=== PATIENT | male | born 1965 | race Caucasian/White ===

== ENCOUNTER 2016-09-03 19:04 | Emergency (ER) | payer OTHER ==
[2016-09-03 19:13] VITALS: BP 140/92
[2016-09-03] MEDS ORDERED: HYDROmorphone 1 MG/ML Syringe IM ONE (19:28)
[2016-09-03] MEDS ORDERED: Promethazine 25 MG/ML SDV IM ONE (19:28)
--- NOTE | 2016-09-03 19:35 | EDM.PDOC ---
ED HPI GENERAL MEDICAL PROBLEM - General Chief Complaint: Neck Problem Stated Complaint: PAIN IN LEFT SIDE OF NECK Time Seen by Provider: 09/03/16 19:18 Source of Information: Reports: Patient History Limitations: Reports: No Limitations - History of Present Illness INITIAL COMMENTS - FREE TEXT/NARRATIVE: c/o 1 1/2yr h/o left neck pain going down to left arm. being Tx by Dr Rivers @ pending MRI SCAN , been eval' by multiple docs and even gone to [place] but nobody can the cause of his pain. states pain comes goes lasting about 1 hour associated with sometime soreness in left throat and hard to swallow, also gets sweaty but noticed left face doesn't sweat but right face does. 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 did have head injury many years ago was admitted for concussion. presently pain going past hours and not going away. was taking oxy but that seem to make things worse and also doesn't help the pain much. 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 Respiratory History: Reports: Sleep Apnea Gastrointestinal History: Reports: Chronic Constipation Genitourinary History: Reports: Other (See Below) Other Genitourinary History: sometimes has trouble emptying bladder Musculoskeletal History: Reports: Other (See Below) Other Musculoskeletal History: diagnosed with ms 09/30 fx rt. wrist. and rotator cuff surg left. Neurological History: Reports: Concussion, MS Other Neuro History: trouble with balance, weak in both legs Psychiatric History: Reports: Depression Endocrine/Metabolic History: Reports: Other (See Below) Other Endocrine/Metabolic History: receives testosterone injections every 2 weeks, stopped getting. - Infectious Disease History Infectious Disease History: Reports: Chicken Pox - Past Surgical History Musculoskeletal Surgical History: Reports: Other (See Below) Social & Family History - Family History Oncologic: Reports: Bone, Prostate Other Oncologic Family History: dad - Tobacco Use Smoking Status *Q: Never Smoker Second Hand Smoke Exposure: No - Caffeine Use Caffeine Use: Reports: None - Alcohol Use Days Per Week of Alcohol Use: 0 - Recreational Drug Use Recreational Drug Use: No ED ROS GENERAL - Review of Systems Review Of Systems: ROS reveals no pertinent complaints other than HPI. ED EXAM, UPPER BACK/NECK PAIN - Physical Exam Exam: See Below Exam Limited By: No Limitations General Appearance: Alert, WD/WN, Mild Distress, Other (distraught) Eye Exam: Bilateral Eye: PERRL (pupils ER @ 4mm) Ears Exam: Hearing Grossly Normal Throat/Mouth Exam: Normal Voice, No Airway Compromise Head Exam: Atraumatic Neck Exam: Muscle Spasm, Other (left trapez region) Nexus Criteria: No: Posterior, Midline Cervical Tenderness, Evidence of Intoxication, Altered Level of Consciousness, Focal Neurological Deficit, Painful Distraction Injuries Cardiovascular/Respiratory: Regular Rate, Rhythm, No Respiratory Distress GI/Abdominal: Soft, Non-Tender Extremities: Normal Range of Motion Neurologic: No Motor/Sensory Deficits, Alert, Oriented x 3 Psychiatric: Other (angry) Skin Exam: Normal Color, Warm/Dry Lymphatic: No Adenopathy Course - Vital Signs Last Recorded V/S: Last Vital Signs Temp 35.9 C 09/03/16 19:12 Pulse 99 09/03/16 19:12 Resp 20 09/03/16 19:12 BP 140/92 H 09/03/16 19:12 Pulse Ox 99 09/03/16 19:12 - Orders/Labs/Meds Orders: Active Orders 24 hr Category Date Time Status fentaNYL [Duragesic] Med 09/03/16 21:30 Ordered 50 mcg TRDERM Q72H Medication Orders Fentanyl (Duragesic) 50 mcg TRDERM Q72H [facility] Meds: Medications Generic Name Dose Route Start Last Admin Trade Name Freq PRN Reason Stop Dose Admin Fentanyl 50 mcg 09/03/16 21:30 Duragesic TRDERM Q72H JA Discontinued Medications Generic Name Dose Route Start Last Admin Trade Name Freq PRN Reason Stop Dose Admin Fentanyl 50 mcg 09/03/16 20:13 09/03/16 20:25 Sublimaze IVPUSH 09/03/16 20:14 50 mcg ONETIME ONE Administration Hydromorphone HCl 1 mg 09/03/16 19:28 09/03/16 19:38 Dilaudid IM 09/03/16 19:29 1 mg ONETIME ONE Administration Promethazine HCl 25 mg 09/03/16 19:28 09/03/16 19:38 Phenergan IM 09/03/16 19:29 25 mg ONETIME ONE Administration - Re-Assessments/Exams Free Text/Narrative Re-Assessment/Exam: 09/03/16 21:26 s/p fentanyl = much better thinks can go home. discussed with Pt & spouse re; interaction between cymbalta & fentanyl but will substitute with ativan instead. Departure - Departure Time of Disposition: 21:28 Disposition: Home, Self-Care 01 Condition: Good Clinical Impression: Intractable neuropathic pain of upper extremity - Discharge Information Instructions: Neuropathic Pain Forms: ED Department Discharge Additional Instructions: 1) rest and avoid excess use of left arm 2) follow up with family doctor or return if there is any change or concern rx given; fentanyl 50 microGm patch x 1 ativan 1mg bid prn x 6 - My Orders Last 24 Hours: My Active Orders 09/03/16 21:30 fentaNYL [Duragesic] 50 mcg TRDERM Q72H - Assessment/Plan Last 24 Hours: My Active Orders 09/03/16 21:30 fentaNYL [Duragesic] 50 mcg TRDERM Q72H
[2016-09-03] MEDS ORDERED: fentaNYL 100 MCG/2 ML SDV IVPUSH ONE (20:13)
[2016-09-03] MEDS ORDERED: fentaNYL 50 MCG/HR Transdermal Patch TRDERM SCH (21:30)
[2016-09-03] MEDS ORDERED: LORazepam 1 MG Tab ONE (21:37)
== END 2016-09-03 22:02 | disposition home or self-care (01) ==
LOC: DL.ED 19:04
DX: M79.2 Neuralgia and neuritis, unspecified (principal); H54.7 Unspecified visual loss; E78.00 Pure hypercholesterolemia, unspecified; I10 Essential (primary) hypertension; F32.9 Major depressive disorder, single episode, unspecified
CPT/HCPCS: 96372; 96374; 99283; A9270; J1170; J2550; J3010

== ENCOUNTER 2016-09-03 23:47 | Emergency (ER) | payer OTHER ==
[2016-09-03 23:59] VITALS: BP 164/91
[2016-09-04] MEDS ORDERED: Ketorolac 30 MG/ML SDV IVPUSH ONE ×2 (00:09→05:24)
--- NOTE | 2016-09-04 00:11 | EDM.PDOC ---
<Clarence Jeter - Last Filed: 09/04/16 05:55> ED HPI GENERAL MEDICAL PROBLEM - General Chief Complaint: General Stated Complaint: LEFT NECK [phone] Time Seen by Provider: 09/04/16 00:10 Source of Information: Reports: Patient History Limitations: Reports: No Limitations - History of Present Illness INITIAL COMMENTS - FREE TEXT/NARRATIVE: return Left Neck Pain Score (Numeric/FACES): 10 - Related Data Allergies Allergy/AdvReac Type Severity Reaction Status Date / Time No Known Allergies Allergy Verified 09/03/16 23:59 Home Meds: Home Meds DULoxetine [Cymbalta] 1 tab PO BID 09/03/16 [History] Topiramate 1 tab PO BEDTIME 09/03/16 [History] Past Medical History HEENT History: Reports: Impaired Vision Cardiovascular History: Reports: High Cholesterol, Hypertension Other Cardiovascular History: See triage note re: Lipitor was discontinued. Respiratory History: Reports: Sleep Apnea Gastrointestinal History: Reports: Chronic Constipation Genitourinary History: Reports: Other (See Below) Other Genitourinary History: sometimes has trouble emptying bladder Musculoskeletal History: Reports: Other (See Below) Other Musculoskeletal History: diagnosed with ms 09/30 fx rt. wrist. and rotator cuff surg left. Neurological History: Reports: Concussion, MS Other Neuro History: trouble with balance, weak in both legs Psychiatric History: Reports: Depression Endocrine/Metabolic History: Reports: Other (See Below) Other Endocrine/Metabolic History: receives testosterone injections every 2 weeks, stopped getting. - Infectious Disease History Infectious Disease History: Reports: Chicken Pox - Past Surgical History Musculoskeletal Surgical History: Reports: Other (See Below) Social & Family History - Family History Oncologic: Reports: Bone, Prostate Other Oncologic Family History: dad - Tobacco Use Smoking Status *Q: Never Smoker Second Hand Smoke Exposure: No - Caffeine Use Caffeine Use: Reports: Soda - Alcohol Use Days Per Week of Alcohol Use: 0 - Recreational Drug Use Recreational Drug Use: No ED ROS GENERAL - Review of Systems Review Of Systems: ROS reveals no pertinent complaints other than HPI. ED EXAM, GENERAL - Physical Exam Exam: See Below Exam Limited By: No Limitations General Appearance: Alert, WD/WN, Mild Distress, Other (pain) Ears: Hearing Grossly Normal Throat/Mouth: Normal Voice, No Airway Compromise Head: Atraumatic Neck: Full Range of Motion, Other (tenderness from left mastoid region of trapezius to left hand) Respiratory/Chest: No Respiratory Distress Cardiovascular: Regular Rate, Rhythm GI/Abdominal: Soft, Non-Tender Neurological: Alert, Oriented, Normal Cognition, Normal Gait, No Motor/Sensory Deficits Psychiatric: Anxious Skin Exam: Warm, Dry, Other (patch on left shoulder intact) Lymphatic: No Adenopathy Course - Vital Signs Last Recorded V/S: Last Vital Signs Temp 97.7 F 09/03/16 23:52 Pulse 97 09/03/16 23:52 Resp 18 09/03/16 23:52 BP 164/91 H 09/03/16 23:52 Pulse Ox 98 09/03/16 23:52 - Orders/Labs/Meds Meds: Medications Discontinued Medications Generic Name Dose Route Start Last Admin Trade Name Madelyn PRN Reason Stop Dose Admin Ketorolac Tromethamine 30 mg 09/04/16 00:09 09/04/16 00:21 Toradol IVPUSH 09/04/16 00:10 30 mg ONETIME ONE Administration Ketorolac Tromethamine 30 mg 09/04/16 05:24 09/04/16 05:37 Toradol IVPUSH 09/04/16 05:25 30 mg ONETIME ONE Administration Lorazepam 2 mg 09/04/16 01:13 09/04/16 01:19 Ativan IVPUSH 09/04/16 01:14 2 mg ONETIME ONE Administration Phenytoin Sodium 1,000 mg 09/04/16 05:59 09/04/16 06:13 Phenytoin IVPUSH 09/04/16 06:00 1,000 mg ONETIME ONE Administration - Re-Assessments/Exams Free Text/Narrative Re-Assessment/Exam: 09/04/16 06:[address] Guillen Neuro on-call @ who rec' IV dilantin for Pt's pain that is not responding well to opiods. Pt instructed to call Dr Rivers @ 8am when he gets home. Departure - Departure Disposition: Home, Self-Care 01 Condition: Good Clinical Impression: Neuropathic pain - Discharge Information Instructions: Neuropathic Pain Forms: ED Department Discharge Additional Instructions: 1) call Dr Rivers today for uncontrollable pain. Inform Dr Rivers you have a 50microgram FENTANYL PATCH placed and it is not helping. Inform Dr Rivers you were here overnight and was given IV TORADOL AND IV ATIVAN and slept for about 5 hours and upon waking your pain returned. then you received IV TORADOL AND IV DILANTIN per Dr Guillen' recommendation and to call Dr Rivers this morning. <Dillon Dewey - Last Filed: 09/04/16 07:15> Departure - Departure Time of Disposition: 07:14 Condition: Good
[2016-09-04] MEDS ORDERED: LORazepam 2 MG/ML Syringe IVPUSH ONE (01:13)
[2016-09-04] MEDS ORDERED: Phenytoin 250 MG/5 ML SDV IVPUSH ONE (05:59)
== END 2016-09-04 07:20 | disposition home or self-care (01) ==
LOC: DL.ED 23:47
DX: M79.2 Neuralgia and neuritis, unspecified (principal); H54.7 Unspecified visual loss; E78.00 Pure hypercholesterolemia, unspecified; I10 Essential (primary) hypertension; F32.9 Major depressive disorder, single episode, unspecified; G35 Multiple sclerosis
CPT/HCPCS: 96365; 96375; 96376; 99283; J1165; J1885; J2060; 96372; 96374; A9270-GY; J1170; J2550; J3010

== ENCOUNTER 2016-09-05 03:34 | Emergency (ER) | payer OTHER ==
[2016-09-05 03:49] VITALS: BP 138/88
[2016-09-05] MEDS ORDERED: LORazepam 1 MG Tab PO ONE (04:48)
[2016-09-05] MEDS ORDERED: LORazepam 1 MG Tab ONE (04:48)
--- NOTE | 2016-09-05 04:54 | EDM.PDOC ---
ED HPI GENERAL MEDICAL PROBLEM - General Chief Complaint: Neck Problem Stated Complaint: LEFT SIDE OF NECK PAIN Time Seen by Provider: 09/05/16 03:50 Source of Information: Reports: Patient History Limitations: Reports: No Limitations - History of Present Illness INITIAL COMMENTS - FREE TEXT/NARRATIVE: c/o pain to left arm starting at neck and radiating down to fingers, intermittent. Was seen in ED last caridad for same. Seemed to do better yesterday then woke during night with pain so came to ED. Has been on multiple medications in past to alleviate pain without success. Diagnosed with MS in 2013. Primary symptoms at onset loss of balance. Sx seems to have plateaued. Has been seen by multiple specialists for left upper extremity pain and no determined cause. Sheduled for MRI on Sunday of neck and soft tissue. Patient states he just wants someone to go in surgically and fix whatever is wrong. Onset: Other Duration: Chronic, Waxing/Waning Location: Reports: Upper Extremity, Left Left Neck Pain Score (Numeric/FACES): 10 - Related Data Allergies Allergy/AdvReac Type Severity Reaction Status Date / Time No Known Allergies Allergy Verified 09/05/16 03:48 Home Meds: Home Meds DULoxetine [Cymbalta] 1 tab PO BID 09/03/16 [History] Topiramate 1 tab PO BEDTIME 09/03/16 [History] Past Medical History HEENT History: Reports: Impaired Vision Cardiovascular History: Reports: High Cholesterol, Hypertension Other Cardiovascular History: See triage note re: Lipitor was discontinued. Respiratory History: Reports: Sleep Apnea Gastrointestinal History: Reports: Chronic Constipation Genitourinary History: Reports: Other (See Below) Other Genitourinary History: sometimes has trouble emptying bladder Musculoskeletal History: Reports: Other (See Below) Other Musculoskeletal History: diagnosed with ms 09/30 fx rt. wrist. and rotator cuff surg left. Neurological History: Reports: Concussion, MS Other Neuro History: trouble with balance, weak in both legs Psychiatric History: Reports: Depression Endocrine/Metabolic History: Reports: Other (See Below) Other Endocrine/Metabolic History: receives testosterone injections every 2 weeks, stopped getting. - Infectious Disease History Infectious Disease History: Reports: Chicken Pox - Past Surgical History Musculoskeletal Surgical History: Reports: Other (See Below) Social & Family History - Family History Oncologic: Reports: Bone, Prostate Other Oncologic Family History: dad - Tobacco Use Smoking Status *Q: Never Smoker Second Hand Smoke Exposure: No - Caffeine Use Caffeine Use: Reports: Soda - Alcohol Use Days Per Week of Alcohol Use: 0 - Recreational Drug Use Recreational Drug Use: No ED ROS GENERAL - Review of Systems Review Of Systems: See Below Constitutional: Reports: No Symptoms HEENT: Reports: No Symptoms. Denies: Vision Change Respiratory: Reports: No Symptoms Cardiovascular: Reports: No Symptoms Endocrine: Reports: No Symptoms GI/Abdominal: Reports: No Symptoms Musculoskeletal: Reports: Arm Pain (intermittent pain radiating from neck to fingers occurs approximately every hours last up to 45 minutes , notes pain to be worse after exertional type activities. only thing makes pain beter is to walk. pain worse sitting and lying. ) Skin: Reports: Diaphoresis, Other (2-3 weeks if sweats, more profuse on right than left.) Neurological: Denies: Numbness Psychiatric: Reports: Anxiety ED EXAM, UPPER BACK/NECK PAIN - Physical Exam Exam: See Below Exam Limited By: No Limitations General Appearance: Alert, No Apparent Distress (rates current pain 2/10) Eye Exam: Bilateral Eye: EOMI, PERRL Ears Exam: Normal External Exam Nose Exam: Normal Inspection Throat/Mouth Exam: Normal Inspection Head Exam: Atraumatic, Normocephalic Cardiovascular/Respiratory: Regular Rate, Rhythm, Normal Peripheral Pulses GI/Abdominal: Normal Bowel Sounds, Soft, Non-Tender Neurologic: No Motor/Sensory Deficits, Oriented x 3, Depressed Affect. No: Aphasia, Motor Weakness, Sensory Deficit, Disoriented x 3 Psychiatric: Flat Affect (poor eye contact, negative focus, ) Skin Exam: Normal Color, Warm/Dry Course - Vital Signs Last Recorded V/S: Last Vital Signs Temp 96.3 F 09/05/16 03:40 Pulse 86 09/05/16 03:40 Resp 18 09/05/16 03:40 BP 138/88 09/05/16 03:40 Pulse Ox 99 09/05/16 03:40 - Orders/Labs/Meds Meds: Medications Discontinued Medications Generic Name Dose Route Start Last Admin Trade Name Freq PRN Reason Stop Dose Admin Lorazepam Confirm 09/05/16 04:48 Ativan Administered 09/05/16 04:49 Dose 1 mg .ROUTE .STK-MED ONE Departure - Departure Time of Disposition: 04:49 Disposition: Home, Self-Care 01 Condition: Fair Clinical Impression: Left upper arm pain, Multiple sclerosis - Discharge Information Instructions: Cervical Radiculopathy, [id number], Chronic Pain Forms: ED Department Discharge Additional Instructions: Follow up with MRI on Sunday as scheduled Ativan 1 mg every 6 hours as needed for anxiety /pain ight activity as tolerated.
== END 2016-09-05 04:57 | disposition home or self-care (01) ==
LOC: DL.ED 03:34
DX: M79.622 Pain in left upper arm (principal); G35 Multiple sclerosis; H54.7 Unspecified visual loss; I10 Essential (primary) hypertension; F32.9 Major depressive disorder, single episode, unspecified
CPT/HCPCS: 99283; A9270

== ENCOUNTER 2016-09-06 00:53 | Emergency (ER) | payer OTHER ==
[2016-09-06 01:02] VITALS: BP 153/93
[2016-09-06] MEDS ORDERED: Ketorolac 30 MG/ML SDV IM ONE (02:06)
--- NOTE | 2016-09-06 02:24 | EDM.PDOC ---
ED HPI GENERAL MEDICAL PROBLEM - General Chief Complaint: Neck Problem Stated Complaint: NECK PAIN Time Seen by Provider: 09/06/16 01:05 Source of Information: Reports: Patient History Limitations: Reports: No Limitations - History of Present Illness INITIAL COMMENTS - FREE TEXT/NARRATIVE: c/o recurrence of left arm and shoulder pain after going to bed, tried walking and pain continued. Pain worse when lying flat and sitting, more relief when upright. Has been seen daily for same 3 times in past 2 days. Tonight noting that Toradol worked best for him after fentanyl. Currently has fentanyl patch. MRI scheduled for am in [place]. Follow up appointment with Dr. Salguero on Sunday. Was prescribed medication By Dr. Klein on Sunday but not available locally until Sunday. Has tried muscle relaxants in past that have not worked. Unable to tolerate Neurontin due to " bad thoughts" Currently experiences periods of similar thoughts of not wanting to go on if pain not controlled and unknown cause. Denies immediate plans of harm to self. Voices only able to keep going ans long as cause of pain being investigated. Continues to desire investigative surgery to determine cause of pain. Has seen counselor in past but does not thinking it was beneficial as counselor did not seem to have experience in issues with pain. Duration: Chronic, Intermittent Location: Reports: Upper Extremity, Left Quality: Reports: Sharp, Other (tingling, spasm) Severity: Severe Left Neck Pain Score (Numeric/FACES): 10 - Related Data Allergies Allergy/AdvReac Type Severity Reaction Status Date / Time No Known Allergies Allergy Verified 09/06/16 01:02 Home Meds: Home Meds Dimethyl Fumarate [Tecfidera] 240 mg PO BID 09/06/16 [History] LORazepam [Ativan] 1 mg PO Q6H 09/06/16 [History] fentaNYL [Fentanyl] 1 each TD ASDIRECTED 09/06/16 [History] Past Medical History HEENT History: Reports: Impaired Vision Cardiovascular History: Reports: High Cholesterol, Hypertension Other Cardiovascular History: See triage note re: Lipitor was discontinued. Respiratory History: Reports: Sleep Apnea Gastrointestinal History: Reports: Chronic Constipation Genitourinary History: Reports: Other (See Below) Other Genitourinary History: sometimes has trouble emptying bladder Musculoskeletal History: Reports: Other (See Below) Other Musculoskeletal History: diagnosed with ms 7/15 fx rt. wrist. and rotator cuff surg left. Neurological History: Reports: Concussion, MS Other Neuro History: trouble with balance, weak in both legs Psychiatric History: Reports: Depression Endocrine/Metabolic History: Reports: Other (See Below) Other Endocrine/Metabolic History: receives testosterone injections every 2 weeks, stopped getting. - Infectious Disease History Infectious Disease History: Reports: Chicken Pox - Past Surgical History Musculoskeletal Surgical History: Reports: Other (See Below) Social & Family History - Family History Oncologic: Reports: Bone, Prostate Other Oncologic Family History: dad - Tobacco Use Smoking Status *Q: Never Smoker Second Hand Smoke Exposure: No - Caffeine Use Caffeine Use: Reports: Soda - Alcohol Use Days Per Week of Alcohol Use: 0 - Recreational Drug Use Recreational Drug Use: No ED ROS GENERAL - Review of Systems Review Of Systems: ROS reveals no pertinent complaints other than HPI. ED EXAM, UPPER BACK/NECK PAIN - Physical Exam Exam: See Below Exam Limited By: No Limitations General Appearance: Alert, Anxious, Mild Distress, Obese Ears Exam: Normal External Exam Nose Exam: Normal Inspection Throat/Mouth Exam: Normal Inspection Head Exam: Atraumatic, Normocephalic Neck Exam: Full Range of Motion, Normal Alignment, Muscle Spasm (left), Tenderness (left lateral with palpation, ). No: Spinous Processes Tender Nexus Criteria: No: Posterior, Midline Cervical Tenderness, Evidence of Intoxication, Altered Level of Consciousness, Focal Neurological Deficit, Painful Distraction Injuries Cardiovascular/Respiratory: Regular Rate, Rhythm Extremities: Normal Range of Motion, Arm Pain (left) Neurologic: No Motor/Sensory Deficits, Alert. No: Motor Weakness Psychiatric: Anxious, Depressed Mood Skin Exam: Normal Color, Warm/Dry. No: Ecchymosis, Mottled, Pallor Lymphatic: No Adenopathy Course - Vital Signs Last Recorded V/S: Last Vital Signs Temp 97.9 F 09/06/16 00:57 Pulse 97 09/06/16 00:57 Resp 18 09/06/16 00:57 BP 153/93 H 09/06/16 00:57 Pulse Ox 95 09/06/16 00:57 - Orders/Labs/Meds Meds: Medications Discontinued Medications Generic Name Dose Route Start Last Admin Trade Name Freq PRN Reason Stop Dose Admin Ketorolac Tromethamine 60 mg 09/06/16 02:06 09/06/16 02:10 Toradol IM 09/06/16 02:07 60 mg ONETIME ONE Administration Departure - Departure Time of Disposition: 02:25 Disposition: Home, Self-Care 01 Condition: Good Clinical Impression: Pain of left arm, Neck pain on left side - Discharge Information Instructions: Muscle Cramps and Spasms, [id number] Forms: ED Department Discharge Additional Instructions: follow up with primary care MRI in am
== END 2016-09-06 02:27 | disposition home or self-care (01) ==
LOC: DL.ED 00:53
DX: M54.2 Cervicalgia (principal); M79.602 Pain in left arm; M62.838 Other muscle spasm; I10 Essential (primary) hypertension; E78.00 Pure hypercholesterolemia, unspecified; G47.30 Sleep apnea, unspecified; F32.9 Major depressive disorder, single episode, unspecified; G35 Multiple sclerosis; Z79.899 Other long term (current) drug therapy
CPT/HCPCS: 96372; 99283; J1885

== ENCOUNTER 2016-09-06 13:36 | Emergency (ER) | payer OTHER ==
[2016-09-06 14:02] VITALS: BP 146/103
[2016-09-06] MEDS ORDERED: chlorproMAZINE 25 MG Tab PO ONE (14:07)
--- NOTE | 2016-09-06 14:34 | EDM.PDOC ---
ED HPI GENERAL MEDICAL PROBLEM - General Chief Complaint: Neck Problem Time Seen by Provider: 09/06/16 13:50 Source of Information: Reports: Patient History Limitations: Reports: No Limitations - History of Present Illness INITIAL COMMENTS - FREE TEXT/NARRATIVE: This 51 yo male patient reports to the ED with left sided neck pain radiating to his left arm. The patient has been seen in the ED 4 times over the past 3 days for the same symptoms, but continues to be in pain. The patient reports he is scheduled to have an MRI tomorrow afternoon at 1300 in [facility]. The patient reports the last visit to the ED did not resolve his pain, in fact, the patient reports the medication (Toradol) actually made his pain constant. The patient reports that he is supposed to get another medication from [facility] after 4 pm today, but the patient would like something to get him from now to 4 pm. The patient reports some frustration with constant pain in his shoulder and neck. The patient reports he has been seen at the [facility] for his MS, by neurology (Dr. Klein in [place]) and by pain management in [place], but continues to have pain. Onset: Gradual Duration: Day(s):, Constant, Getting Worse Location: Reports: Neck (left side of neck ), Upper Extremity, Left Quality: Reports: Ache, Dull Severity: Moderate Improves with: Reports: None Worsens with: Reports: None Associated Symptoms: Reports: No Other Symptoms Left Neck Pain Score (Numeric/FACES): 10 - Related Data Allergies Allergy/AdvReac Type Severity Reaction Status Date / Time No Known Allergies Allergy Verified 09/06/16 01:02 Home Meds: Home Meds Dimethyl Fumarate [Tecfidera] 240 mg PO BID 09/06/16 [History] LORazepam [Ativan] 1 mg PO Q6H 09/06/16 [History] fentaNYL [Fentanyl] 1 each TD ASDIRECTED 09/06/16 [History] Past Medical History HEENT History: Reports: Impaired Vision Cardiovascular History: Reports: High Cholesterol, Hypertension Other Cardiovascular History: See triage note re: Lipitor was discontinued. Respiratory History: Reports: Sleep Apnea Gastrointestinal History: Reports: Chronic Constipation Genitourinary History: Reports: Other (See Below) Other Genitourinary History: sometimes has trouble emptying bladder Musculoskeletal History: Reports: Other (See Below) Other Musculoskeletal History: diagnosed with ms 09/30 fx rt. wrist. and rotator cuff surg left. Neurological History: Reports: Concussion, MS Other Neuro History: trouble with balance, weak in both legs Psychiatric History: Reports: Depression Endocrine/Metabolic History: Reports: Other (See Below) Other Endocrine/Metabolic History: receives testosterone injections every 2 weeks, stopped getting. - Infectious Disease History Infectious Disease History: Reports: Chicken Pox - Past Surgical History Musculoskeletal Surgical History: Reports: Other (See Below) Social & Family History - Family History Oncologic: Reports: Bone, Prostate Other Oncologic Family History: dad - Tobacco Use Smoking Status *Q: Never Smoker Second Hand Smoke Exposure: No - Caffeine Use Caffeine Use: Reports: Soda - Alcohol Use Days Per Week of Alcohol Use: 0 - Recreational Drug Use Recreational Drug Use: No ED ROS GENERAL - Review of Systems Review Of Systems: ROS reveals no pertinent complaints other than HPI. ED EXAM, UPPER BACK/NECK PAIN - Physical Exam Exam: See Below Exam Limited By: No Limitations General Appearance: Alert, WD/WN, No Apparent Distress Eye Exam: Bilateral Eye: EOMI, Normal Inspection, PERRL Ears Exam: Normal External Exam, Normal Canal, Hearing Grossly Normal, Normal TMs Nose Exam: Normal Inspection, Normal Mucousa, No Blood Throat/Mouth Exam: Normal Inspection, Normal Lips, Normal Teeth, Normal Gums, Normal Oropharynx, Normal Voice, No Airway Compromise Head Exam: Atraumatic, Normocephalic Neck Exam: Limited Range of Motion, Painful Range of Motion (left neck) Nexus Criteria: Posterior, Midline Cervical Tenderness Cardiovascular/Respiratory: Regular Rate, Rhythm, No M/R/G, Normal Peripheral Pulses, No JVD, Normal Breath Sounds, No Respiratory Distress GI/Abdominal: Normal Bowel Sounds, Soft, Non-Tender, No Organomegaly, No Distention, No Abnormal Bruit, No Mass (Male) Exam: Deferred Rectal (Males) Exam: Deferred Back Exam: Normal Inspection, Full Range of Motion, NT Extremities: Normal Inspection, Normal Range of Motion, Non-Tender, No Pedal Edema, Normal Capillary Refill Neurologic: vest tailor II-XII nml As Tested, No Motor/Sensory Deficits, Alert, Normal Mood/Affect, Oriented x 3 Psychiatric: Normal Affect, Normal Mood Skin Exam: Normal Color, Warm/Dry Lymphatic: No Adenopathy Course - Vital Signs Last Recorded V/S: Last Vital Signs Temp 36.6 C 06/21/17 13:38 Pulse 101 H 09/06/16 13:38 Resp 18 09/06/16 13:38 BP 146/103 H 09/06/16 13:38 Pulse Ox 96 09/06/16 13:38 - Orders/Labs/Meds Meds: Medications Discontinued Medications Generic Name Dose Route Start Last Admin Trade Name Madelyn PRN Reason Stop Dose Admin Chlorpromazine HCl 25 mg 09/06/16 14:07 09/06/16 14:34 Thorazine PO 09/06/16 14:08 Not Given ONETIME ONE Chlorpromazine HCl 25 mg 09/06/16 14:30 09/06/16 14:30 Chlorpromazine PO 09/06/16 14:31 25 mg ONETIME ONE Administration - Re-Assessments/Exams Free Text/Narrative Re-Assessment/Exam: 09/06/16 14:27 A call was placed to Dr. Klein (Neurology with [facility]). Dr. Klein is aware of the patient's recent visits to the ED. Dr. Klein would like the patient to get an oral dose of Thorazine (25 mg) here in the ED. The patient should poultry picker his prescription from [facility] after 4:00 this afternoon. The patient should still get his MRI tomorrow at [facility] in [place] with a follow-up appointment with Dr. Klein on Sunday. The patient should take the Thorazine as directed (25 mg three times per day). Departure - Departure Time of Disposition: 14:30 Disposition: Home, Self-Care 01 Condition: Fair Clinical Impression: Neck pain on left side - Discharge Information Forms: ED Department Discharge Care Plan Goals: The patient was advised of the examination results and the consultation results with Dr. Klein. The patient was given an oral dose of Thorazine (25 mg) while in the ED. The patient should poultry picker his prescription for Thorazine (25 mg) to take 1 by mouth 3 times per day at [facility] after 4:00 this afternoon. The patient should get the MRI tomorrow in [place] as scheduled. The patient has a follow-up scheduled with Dr. Klein on Sunday. If the patient has any additional symptoms or concerns, the patient should contact Dr. Klein, his primary care facility or return to the emergency department.
== END 2016-09-06 14:36 | disposition home or self-care (01) ==
LOC: DL.ED 13:36
DX: M54.2 Cervicalgia (principal); I10 Essential (primary) hypertension; E78.00 Pure hypercholesterolemia, unspecified; G47.30 Sleep apnea, unspecified; F32.9 Major depressive disorder, single episode, unspecified
CPT/HCPCS: 99283; Q0161; 96372; J1885

== ENCOUNTER 2016-09-15 09:35 | Emergency (ER) | payer OTHER ==
--- NOTE | 2016-09-15 10:44 | EDM.PDOC ---
ED HPI GENERAL MEDICAL PROBLEM - General Chief Complaint: Upper Extremity Injury/Pain Stated Complaint: pain left arm, possible drug reation Time Seen by Provider: 09/15/16 10:37 Source of Information: Reports: Patient, Family History Limitations: Reports: No Limitations - History of Present Illness INITIAL COMMENTS - FREE TEXT/NARRATIVE: 51 yo male who presents with pain to left arm that is getting worse. Has an 1.5 year hx of left arm pain after a shoulder surgery with evaluation by multiple specialist. Is being followed by Dr. Klein Neuro in and recently had an MRI of his soft tissue neck which was negative for any enlarged lymph nodes that may be pressing against a nerve. Has a hx of MS and had MRI of his neck that reveals no injuries per patient and . Was seen in this ER multiple times this month with pain that was not relieved by any medication. States narcotics cause pain to increase, was placed on thorazine and gabapentin. States that gabapentin causes increased in "weird thoughts" so he quite it. Was placed on a fentanyl patch last week and when site was switched to left shoulder he began having excruciating pain and removed it after 24 hours. Has not replaced the patch since. Denies decrease in strength,but c/o numbness and tingling starting from his left lateral neck under his ear down to his fingers. No n/v/d. Onset: Gradual, Unknown/Unsure Duration: Getting Worse Location: Reports: Upper Extremity, Left Quality: Reports: Ache, Pressure, Throbbing Severity: Severe Improves with: Reports: None Worsens with: Reports: None Associated Symptoms: Reports: No Other Symptoms Left Arm Pain Score (Numeric/FACES): 10 - Related Data Allergies Allergy/AdvReac Type Severity Reaction Status Date / Time No Known Allergies Allergy Verified 09/06/16 01:02 Home Meds: Home Meds Dimethyl Fumarate [Tecfidera] 240 mg PO BID 09/06/16 [History] LORazepam [Ativan] 1 mg PO Q6H 09/06/16 [History] fentaNYL [Fentanyl] 1 each TD ASDIRECTED 09/06/16 [History] Past Medical History HEENT History: Reports: Impaired Vision Cardiovascular History: Reports: High Cholesterol, Hypertension Other Cardiovascular History: See triage note re: Lipitor was discontinued. Respiratory History: Reports: Sleep Apnea Gastrointestinal History: Reports: Chronic Constipation Genitourinary History: Reports: Other (See Below) Other Genitourinary History: sometimes has trouble emptying bladder Musculoskeletal History: Reports: Other (See Below) Other Musculoskeletal History: diagnosed with ms 09/30 fx rt. wrist. and rotator cuff surg left. Neurological History: Reports: Concussion, MS Other Neuro History: trouble with balance, weak in both legs Psychiatric History: Reports: Depression Endocrine/Metabolic History: Reports: Other (See Below) Other Endocrine/Metabolic History: receives testosterone injections every 2 weeks, stopped getting. - Infectious Disease History Infectious Disease History: Reports: Chicken Pox - Past Surgical History Male Surgical History: Reports: Other (See Below) Other Male Surgeries/Procedures: removal of testicle Musculoskeletal Surgical History: Reports: Other (See Below) Other Musculoskeletal Surgeries/Procedures:: ACL repair Social & Family History - Family History Oncologic: Reports: Bone, Prostate Other Oncologic Family History: dad - Tobacco Use Smoking Status *Q: Never Smoker Second Hand Smoke Exposure: No - Caffeine Use Caffeine Use: Reports: Coffee, Soda - Alcohol Use Days Per Week of Alcohol Use: 0 - Recreational Drug Use Recreational Drug Use: No Review of Systems - Review of Systems Review Of Systems: ROS reveals no pertinent complaints other than HPI. ED EXAM, GENERAL - Physical Exam Exam: See Below Exam Limited By: No Limitations General Appearance: Alert, WD/WN, No Apparent Distress Neck: Normal Inspection, Supple, Full Range of Motion, Tender Lateral (with palpation of neck just above clavicle) Respiratory/Chest: No Respiratory Distress, Lungs Clear, Normal Breath Sounds, No Accessory Muscle Use, Chest Non-Tender Cardiovascular: Normal Peripheral Pulses, Regular Rate, Rhythm, No Edema, No Gallop, No JVD, No Murmur, No Rub Peripheral Pulses: 4+: Carotid (L), Carotid (R), Brachial (L), Brachial (R), Radial (L), Radial (R) Back Exam: Normal Inspection Extremities: Normal Inspection, Normal Range of Motion, Non-Tender, Normal Capillary Refill, No Pedal Edema Neurological: Alert, Oriented, CN II-XII Intact, Normal Cognition, Normal Gait, No Motor/Sensory Deficits Psychiatric: Normal Affect, Normal Mood Skin Exam: Warm, Dry, Intact, Normal Color, No Rash Lymphatic: No Adenopathy Course - Vital Signs Last Recorded V/S: Last Vital Signs Temp 98.0 F 09/15/16 13:46 Pulse 84 09/15/16 13:46 Resp 18 09/15/16 13:46 BP 158/84 H 09/15/16 13:46 Pulse Ox 98 09/15/16 13:46 - Orders/Labs/Meds Meds: Medications Discontinued Medications Generic Name Dose Route Start Last Admin Trade Name Madelyn PRN Reason Stop Dose Admin Iopamidol 75 ml 09/15/16 11:54 09/15/16 12:08 Isovue-300 (61%) IVPUSH 09/15/16 11:55 75 ml ONETIME ONE Administration Lidocaine 700 mg 09/15/16 10:45 09/15/16 10:57 Lidoderm 5% TOP 09/15/16 10:46 700 mg ONETIME ONE Administration Lidocaine 700 mg 09/15/16 13:24 09/15/16 14:14 Lidoderm 5% TOP 09/15/16 13:25 700 mg ONETIME ONE Administration Lorazepam 2 mg 09/15/16 13:37 09/15/16 14:12 Ativan IM 09/15/16 13:38 2 mg ONETIME ONE Administration Pregabalin 50 mg 09/15/16 10:46 09/15/16 10:56 Lyrica PO 09/15/16 10:47 50 mg ONETIME ONE Administration - Re-Assessments/Exams Free Text/Narrative Re-Assessment/Exam: 09/15/16 13:24 States pain has decreased some with the lidoderm patch and lyrica. Will apply another patch to left shoulder to decrease pain there. Informed pt of cystic structure to mediastinum measure 3 cm and will have his follow up with PCP for MRI of chest to evaluate it. 09/15/16 14:57 Pt states that he feels "as good as it is gonna get". States that he feels much better than when he arrived. Departure - Departure Time of Disposition: 14:58 Disposition: Home, Self-Care 01 Condition: Good Clinical Impression: Neck pain on left side, Intractable neuropathic pain of upper extremity - Discharge Information Instructions: Shoulder Pain, [id number] Referrals: Jaclyn Ellis MD [Primary Care Provider] - Forms: ED Department Discharge Additional Instructions: Ct scan of chest revealed a 3 cm cyst-type structure to to your lower anterior mediastinum. Follow up with Dr Ellis for potential MRI to evaluate this. You may place up to three lidoderm patches on for up to 12 hours per day. Follow up with Dr. Klein to continue evaluation of nerve pain to left shoulder. Discontinue taking the fentanyl as it causes more pain. Let both your doctors know of the findings today and that you have been started on lyrica and lidoderm patch. You may continue taking your other medication with this however if you began having any unusual thoughts, stop taking the lyrica. Return for any worsening symptoms
[2016-09-15] MEDS ORDERED: Lidocaine 5% 700 MG Patch TOP ONE ×2 (10:45→13:24)
[2016-09-15] MEDS ORDERED: Pregabalin 50 MG Cap PO ONE (10:46)
[2016-09-15] MEDS ORDERED: Iopamidol 612 MG/ML 75 ML Bottle IVPUSH ONE (11:54)
[2016-09-15] MEDS ORDERED: LORazepam 2 MG/ML Syringe IM ONE (13:37)
[2016-09-15 13:47] VITALS: BP 158/84
== END 2016-09-15 15:05 | disposition home or self-care (01) ==
LOC: DL.ED 09:35
DX: M54.2 Cervicalgia (principal); G62.9 Polyneuropathy, unspecified; I10 Essential (primary) hypertension; E78.00 Pure hypercholesterolemia, unspecified; G47.30 Sleep apnea, unspecified; F32.9 Major depressive disorder, single episode, unspecified; Z98.890 Other specified postprocedural states
CPT/HCPCS: 71260; 72125; 96372; 99283; A9270; J2060; Q9967

== ENCOUNTER 2016-09-17 22:45 | Emergency (ER) | payer OTHER ==
[2016-09-17 22:53] VITALS: BP 140/97
--- NOTE | 2016-09-17 23:38 | EDM.PDOC ---
ED HPI GENERAL MEDICAL PROBLEM - General Chief Complaint: Upper Extremity Injury/Pain Stated Complaint: LT ARM PAIN, SOB Time Seen by Provider: 09/17/16 23:00 Source of Information: Reports: Patient History Limitations: Reports: No Limitations - History of Present Illness INITIAL COMMENTS - FREE TEXT/NARRATIVE: This 51 yo male patient reports to the ED with left arm pain and shortness of breath. The patient reports he has been seen by numerous providers and has not been helped. The patient requested pain medication to take care of the "fucking " pain in his arm. The patient reports he is waiting for an MRI of his chest as he had a CT of his chest that located a 1 1/2 inch cyst compressing his nerves to his left arm. The patient reports he has been taking the Lyrica, Lidoderm patches and attempting to follow-up with all providers as directed. The patient was getting very impatient during the interview. A call was placed to [facility] in [place]. Onset: Other Duration: Constant Location: Reports: Upper Extremity, Left Quality: Reports: Ache Severity: Moderate Improves with: Reports: None Worsens with: Reports: None Associated Symptoms: Reports: No Other Symptoms Left Neck Pain Score (Numeric/FACES): 10 - Related Data Allergies Allergy/AdvReac Type Severity Reaction Status Date / Time No Known Allergies Allergy Verified 09/17/16 22:48 Home Meds: Home Meds Dimethyl Fumarate [Tecfidera] 240 mg PO BID 09/06/16 [History] LORazepam [Ativan] 1 mg PO Q6H 09/06/16 [History] fentaNYL [Fentanyl] 1 each TD ASDIRECTED 09/06/16 [History] Past Medical History HEENT History: Reports: Impaired Vision Cardiovascular History: Reports: High Cholesterol, Hypertension Other Cardiovascular History: See triage note re: Lipitor was discontinued. Respiratory History: Reports: Sleep Apnea Gastrointestinal History: Reports: Chronic Constipation Genitourinary History: Reports: Other (See Below) Other Genitourinary History: sometimes has trouble emptying bladder Musculoskeletal History: Reports: Other (See Below) Other Musculoskeletal History: diagnosed with ms 09/30 fx rt. wrist. and rotator cuff surg left. Neurological History: Reports: Concussion, MS Other Neuro History: trouble with balance, weak in both legs Psychiatric History: Reports: Depression Endocrine/Metabolic History: Reports: Other (See Below) Other Endocrine/Metabolic History: receives testosterone injections every 2 weeks, stopped getting. Hematologic History: Reports: None Immunologic History: Reports: None Oncologic (Cancer) History: Reports: None Dermatologic History: Reports: None - Infectious Disease History Infectious Disease History: Reports: Chicken Pox - Past Surgical History Male Surgical History: Reports: Other (See Below) Other Male Surgeries/Procedures: removal of testicle Musculoskeletal Surgical History: Reports: Other (See Below) Other Musculoskeletal Surgeries/Procedures:: ACL repair Social & Family History - Family History Oncologic: Reports: Bone, Prostate Other Oncologic Family History: dad - Tobacco Use Smoking Status *Q: Never Smoker Second Hand Smoke Exposure: No - Caffeine Use Caffeine Use: Reports: Coffee, Soda - Alcohol Use Days Per Week of Alcohol Use: 0 - Recreational Drug Use Recreational Drug Use: No Review of Systems - Review of Systems Review Of Systems: ROS reveals no pertinent complaints other than HPI. ED EXAM, GENERAL - Physical Exam Exam: See Below Exam Limited By: No Limitations General Appearance: Alert, WD/WN, No Apparent Distress Eye Exam: Bilateral Eye: EOMI, Normal Inspection, PERRL Ears: Normal External Exam, Normal Canal, Hearing Grossly Normal, Normal TMs Nose: Normal Inspection, Normal Mucosa, No Blood Throat/Mouth: Normal Inspection, Normal Lips, Normal Teeth, Normal Gums, Normal Oropharynx, Normal Voice, No Airway Compromise Head: Atraumatic, Normocephalic Neck: Normal Inspection, Supple, Non-Tender, Full Range of Motion Respiratory/Chest: No Respiratory Distress, Lungs Clear, Normal Breath Sounds, No Accessory Muscle Use, Chest Non-Tender Cardiovascular: Normal Peripheral Pulses, Regular Rate, Rhythm, No Edema, No Gallop, No JVD, No Murmur, No Rub GI/Abdominal: Normal Bowel Sounds, Soft, Non-Tender, No Organomegaly, No Distention, No Abnormal Bruit, No Mass (Male) Exam: Deferred Rectal (Males) Exam: Deferred Back Exam: Normal Inspection, Full Range of Motion, NT Extremities: Limited Range of Motion (left arm) Neurological: Alert, Oriented, CN II-XII Intact, Normal Cognition, Normal Gait, Normal Reflexes, No Motor/Sensory Deficits Psychiatric: Normal Affect, Normal Mood Skin Exam: Warm, Dry, Intact, Normal Color, No Rash Lymphatic: No Adenopathy Course - Vital Signs Last Recorded V/S: Last Vital Signs Temp 36.6 C 09/17/16 22:50 Pulse 83 09/17/16 22:50 Resp 20 09/17/16 22:50 BP 140/97 H 09/17/16 22:50 Pulse Ox 98 09/17/16 22:50 - Orders/Labs/Meds Orders: Active Orders 24 hr Category Date Time Status EKG 12 Lead [EKG Documentation Completion] [RC] STAT Care 09/17/16 23:01 Active Chest 2V [CR] Urgent Exams 09/17/16 22:55 Taken CBC WITH AUTO DIFF [HEME] Stat Lab 09/17/16 23:15 Received CMP [COMPREHENSIVE METABOLIC PN,CMP] [CHEM] Stat Lab 09/17/16 23:15 Received Departure - Departure Time of Disposition: 23:41 Disposition: Home, Self-Care 01 Condition: Fair Clinical Impression: Intractable neuropathic pain of upper extremity, Anxiety - Discharge Information Instructions: Neuropathic Pain Forms: ED Department Discharge Care Plan Goals: The patient was advised of the examination, lab and x-ray results during the visit. The patient was given an injection of Ativan (1 mg) while in the ED. The patient was advised to follow-up with his primary care facility for continued evaluation and further management. - My Orders Last 24 Hours: My Active Orders 09/17/16 22:55 Chest 2V [CR] Urgent 09/17/16 23:01 EKG 12 Lead [EKG Documentation Completion] [RC] STAT 09/17/16 23:15 CBC WITH AUTO DIFF [HEME] Stat CMP [COMPREHENSIVE METABOLIC PN,CMP] [CHEM] Stat - Assessment/Plan Last 24 Hours: My Active Orders 09/17/16 22:55 Chest 2V [CR] Urgent 09/17/16 23:01 EKG 12 Lead [EKG Documentation Completion] [RC] STAT 09/17/16 23:15 CBC WITH AUTO DIFF [HEME] Stat CMP [COMPREHENSIVE METABOLIC PN,CMP] [CHEM] Stat
[2016-09-17] MEDS ORDERED: LORazepam 2 MG/ML Syringe IM ONE (23:39)
[2016-09-17 23:40] LABS: CHLORIDE,CL 101 mmol/L (101-111); SODIUM,NA 140 mmol/L (135-145)
--- NOTE | 2016-09-20 13:17 | EKG ---
09/17/2016- MIGUEL ANGEL SANDOVAL - EKG per my reading shows sinus rhythm at a rate of 83. [facility] /[id number]
== END 2016-09-17 23:50 | disposition home or self-care (01) ==
LOC: DL.ED 22:45
DX: M79.2 Neuralgia and neuritis, unspecified (principal); F41.9 Anxiety disorder, unspecified; E78.00 Pure hypercholesterolemia, unspecified; I10 Essential (primary) hypertension; F32.9 Major depressive disorder, single episode, unspecified; Z98.890 Other specified postprocedural states
CPT/HCPCS: 36415; 71020; 80053; 85025; 93005; 96372; 99283; J2060

== ENCOUNTER 2017-01-25 14:47 | Emergency (ER) | payer OTHER ==
[2017-01-25 14:57] VITALS: BP 166/94
[2017-01-25] MEDS ORDERED: HYDROmorphone 1 MG/ML Syringe IVPUSH ONE (15:23)
[2017-01-25] MEDS ORDERED: HYDROmorphone 1 MG/ML Syringe IM ONE (15:26)
--- NOTE | 2017-01-25 15:26 | EDM.PDOC ---
ED HPI GENERAL MEDICAL PROBLEM - General Chief Complaint: General Stated Complaint: LEFT NECK AND ARM Time Seen by Provider: 01/25/17 15:09 Source of Information: Reports: Patient, RN, RN Notes Reviewed History Limitations: Reports: No Limitations - History of Present Illness INITIAL COMMENTS - FREE TEXT/NARRATIVE: Patient has severe left shoulder pain. In 2014 he had a rotator cuff repair. He sees Dr. Klein of neurology. Pain pump to be placed on Sunday in [place], [place] at [facility].He has also been seen at [facility]. He was diagnosed with MS in 2013. Location: Reports: Upper Extremity, Left Quality: Reports: Ache Severity: Severe Improves with: Reports: None Worsens with: Reports: None Associated Symptoms: Reports: No Other Symptoms Left Arm Pain Score (Numeric/FACES): 5 - Related Data Allergies Allergy/AdvReac Type Severity Reaction Status Date / Time No Known Allergies Allergy Verified 01/25/17 14:52 Home Meds: Home Meds LORazepam [Ativan] 1 mg PO Q6H 09/06/16 [History] Past Medical History HEENT History: Reports: Impaired Vision Cardiovascular History: Reports: High Cholesterol, Hypertension Other Cardiovascular History: See triage note re: Lipitor was discontinued. Respiratory History: Reports: Sleep Apnea Gastrointestinal History: Reports: Chronic Constipation Genitourinary History: Reports: Other (See Below) Other Genitourinary History: sometimes has trouble emptying bladder Musculoskeletal History: Reports: Other (See Below) Other Musculoskeletal History: diagnosed with ms 09/30 fx rt. wrist. and rotator cuff surg left. Neurological History: Reports: Concussion, MS Other Neuro History: trouble with balance, weak in both legs Psychiatric History: Reports: Depression Endocrine/Metabolic History: Reports: Other (See Below) Other Endocrine/Metabolic History: receives testosterone injections every 2 weeks, stopped getting. Hematologic History: Reports: None Immunologic History: Reports: None Oncologic (Cancer) History: Reports: None Dermatologic History: Reports: None - Infectious Disease History Infectious Disease History: Reports: Chicken Pox - Past Surgical History Male Surgical History: Reports: Other (See Below) Other Male Surgeries/Procedures: removal of testicle Musculoskeletal Surgical History: Reports: Other (See Below) Other Musculoskeletal Surgeries/Procedures:: ACL repair - History Comment History Comment: Patient was on morphine pill which did not help. He has been off it for a week. Lorazeoam does not help. Social & Family History - Family History Family Medical History: Noncontributory Oncologic: Reports: Bone, Prostate Other Oncologic Family History: dad - Tobacco Use Smoking Status *Q: Never Smoker Second Hand Smoke Exposure: No - Caffeine Use Caffeine Use: Reports: None - Alcohol Use Days Per Week of Alcohol Use: 0 - Recreational Drug Use Recreational Drug Use: No ED ROS GENERAL - Review of Systems Review Of Systems: ROS reveals no pertinent complaints other than HPI. ED EXAM, GENERAL - Physical Exam Exam: See Below Exam Limited By: No Limitations General Appearance: Alert, WD/WN, No Apparent Distress Eye Exam: Bilateral Eye: Normal Inspection Ears: Normal External Exam, Normal Canal, Hearing Grossly Normal, Normal TMs Nose: Normal Inspection, Normal Mucosa, No Blood Throat/Mouth: Normal Inspection, Normal Lips, Normal Teeth, Normal Gums, Normal Oropharynx, Normal Voice, No Airway Compromise Head: Atraumatic, Normocephalic Neck: Other (Decreased ROM neck and left shoulder.) Respiratory/Chest: No Respiratory Distress, Lungs Clear, Normal Breath Sounds, No Accessory Muscle Use, Chest Non-Tender Cardiovascular: Normal Peripheral Pulses, Regular Rate, Rhythm, No Edema, No Gallop, No JVD, No Murmur, No Rub GI/Abdominal: Normal Bowel Sounds, Soft, Non-Tender, No Organomegaly, No Distention, No Abnormal Bruit, No Mass (Male) Exam: Deferred Rectal (Males) Exam: Deferred Back Exam: Normal Inspection, Full Range of Motion, NT Extremities: Other (stiff neck left shoulder pain.) Neurological: Alert, Oriented, CN II-XII Intact, Normal Cognition, Normal Gait, Normal Reflexes, No Motor/Sensory Deficits Psychiatric: Normal Affect, Normal Mood Skin Exam: Warm, Dry, Intact, Normal Color, No Rash Lymphatic: No Adenopathy Course - Vital Signs Last Recorded V/S: Last Vital Signs Temp 97.8 F 01/25/17 14:53 Pulse 92 01/25/17 14:53 Resp 20 01/25/17 14:53 BP 166/94 H 01/25/17 14:53 Pulse Ox 99 01/25/17 14:53 - Orders/Labs/Meds Meds: Medications Discontinued Medications Generic Name Dose Route Start Last Admin Trade Name Freq PRN Reason Stop Dose Admin Hydromorphone HCl 1 mg 01/25/17 15:26 01/25/17 15:30 Dilaudid IM 01/25/17 15:27 1 mg ONETIME ONE Administration Departure - Departure Time of Disposition: 15:28 Disposition: Home, Self-Care 01 Condition: Fair Clinical Impression: Pain, Neck pain on left side, Left upper arm pain - Discharge Information Instructions: Shoulder Pain Referrals: Jaclyn Ellis MD [Primary Care Provider] - Forms: ED Department Discharge Additional Instructions: Rest, ice Follow up with your pain pump placement on Sunday.
== END 2017-01-25 15:40 | disposition home or self-care (01) ==
LOC: DL.ED 14:47
DX: M79.622 Pain in left upper arm (principal); M25.512 Pain in left shoulder; M54.2 Cervicalgia; I10 Essential (primary) hypertension; E78.00 Pure hypercholesterolemia, unspecified; F32.9 Major depressive disorder, single episode, unspecified
CPT/HCPCS: 96372; 99283; J1170

== ENCOUNTER 2021-03-12 07:15 | Emergency (ER) | payer OTHER ==
--- NOTE | 2021-03-12 07:23 | EDM.PDOC ---
ED HPI GENERAL MEDICAL PROBLEM - General Chief Complaint: ENT Problem Stated Complaint: SPITTING UP BLOOD/TONSILS OUT 14TH Time Seen by Provider: 03/12/21 07:21 Source of Information: Reports: Patient, Old Records, RN, RN Notes Reviewed History Limitations: Reports: No Limitations - History of Present Illness INITIAL COMMENTS - FREE TEXT/NARRATIVE: Pt presents to ER with c/o bleeding from site of his tonsillectomy. Pt reports having tonsils removed on 03/01/[address] Luis Bedoya at [facility]. Bleeding began approximately 0200HR-0300HRS today. Denies lightheadedness, syncope, or rapid HR. No history of Aspirin or blood thinner use. Admits to nausea and urge to gag. Onset: Today, Sudden Onset Date: 03/12/21 Onset Time: 02:00 Duration: Constant Location: Reports: Other (Throat) Quality: Reports: Other (Denies pain) Severity: Moderate Improves with: Reports: None Worsens with: Reports: None Associated Symptoms: Reports: No Other Symptoms Treatments CODING CLERK: Reports: Cold Therapy - Related Data Allergies Allergy/AdvReac Type Severity Reaction Status Date / Time No Known Allergies Allergy Verified 05/24/20 12:21 Home Meds: Home Meds DULoxetine [Cymbalta] 60 mg PO DAILY 10/10/17 [History] FLUoxetine [PROzac] 10 mg PO DAILY 10/10/17 [History] Ketorolac [Toradol] 10 mg PO TID 10/10/17 [History] Tamsulosin [Flomax] 0.4 mg PO DAILY 10/10/17 [History] hydroCHLOROthiazide [Hydrochlorothiazide] 25 mg PO DAILY 10/10/17 [History] Amoxicillin 875 mg PO TID 03/12/21 [History] Past Medical History HEENT History: Reports: Impaired Vision Other HEENT History: wears glasse and contacts Cardiovascular History: Reports: High Cholesterol, Hypertension Other Cardiovascular History: See triage note re: Lipitor was discontinued. Respiratory History: Reports: Sleep Apnea Gastrointestinal History: Reports: Chronic Constipation Genitourinary History: Reports: Other (See Below) Other Genitourinary History: sometimes has trouble emptying bladder. some prostate issues Musculoskeletal History: Reports: Arthritis, Other (See Below) Other Musculoskeletal History: diagnosed with ms 09/30 fx rt. wrist. and rotator cuff surg left. left knee ACL surgery in 1995 Neurological History: Reports: Concussion, MS Other Neuro History: trouble with balance, weak in both legs Psychiatric History: Reports: Anxiety, Depression, Panic Attack Endocrine/Metabolic History: Reports: Other (See Below) Other Endocrine/Metabolic History: receives testosterone injections every 2 weeks, stopped getting. Hematologic History: Reports: None Immunologic History: Reports: None Oncologic (Cancer) History: Reports: None Dermatologic History: Reports: None - Infectious Disease History Infectious Disease History: Reports: Chicken Pox - Past Surgical History HEENT Surgical History: Reports: Tonsillectomy (03/01/21) Cardiovascular Surgical History: Reports: None GI Surgical History: Reports: None Male Surgical History: Reports: Other (See Below) Other Male Surgeries/Procedures: removal of testicle Musculoskeletal Surgical History: Reports: Other (See Below) Other Musculoskeletal Surgeries/Procedures:: ACL repair - History Comment History Comment: Patient was on morphine pill which did not help. He has been off it for a week. Lorazeoam does not help. Social & Family History - Family History Family Medical History: No Pertinent Family History Oncologic: Reports: Bone, Prostate Other Oncologic Family History: Father from prostate cancer in 1997 - Caffeine Use Caffeine Use: Reports: Tea Caffeine Use Comment: 2 bottles day ED ROS ENT - Review of Systems Review Of Systems: Comprehensive ROS is negative, except as noted in HPI. ED EXAM, ENT - Physical Exam Exam: See Below Exam Limited By: No Limitations General Appearance: Alert, WD/WN, No Apparent Distress Eye Exam: Bilateral Eye: Normal Inspection Nose: Normal Inspection Mouth/Throat: Other (B/L tonsillar beds are s/p recent tonsillectomy with steady oozing and bleeding.) Head: Atraumatic, Normocephalic Neck: Normal Inspection Respiratory/Chest: No Respiratory Distress, Lungs Clear, Normal Breath Sounds, No Accessory Muscle Use, Chest Non-Tender Cardiovascular: Regular Rate, Rhythm Neurological: Alert, Oriented, CN II-XII Intact, Normal Cognition, No Motor/Sensory Deficits Psychiatric: Normal Mood Skin: Warm, Dry, Intact, Normal Color, No Rash. No: Ecchymosis, Jaundice, Petechiae Course - Vital Signs Last Recorded V/S: Last Vital Signs Temp 96.5 F L 03/12/21 07:30 Pulse 66 03/12/21 07:30 Resp 16 03/12/21 07:30 BP 135/86 03/12/21 07:30 Pulse Ox 99 03/12/21 07:30 - Orders/Labs/Meds Orders: Active Orders 24 hr Category Date Time Status Peripheral IV Care [RC] . DIRECTED Care 03/12/21 07:43 Ordered CBC WITH AUTO DIFF [HEME] Stat Lab 03/12/21 07:40 Ordered INR,PT,PROTHROMBIN TIME [COAG] Stat Lab 03/12/21 07:40 Ordered PTT,PARTIAL THROMBOPLSTIN TIME [COAG] Stat Lab 03/12/21 07:40 Ordered Sodium Chloride 0.9% [Saline Flush] Med 03/12/21 07:43 Ordered 10 ml FLUSH ASDIRECTED PRN Ice Bag [Ice Therapy] [OM.PC] Routine Oth 03/12/21 07:25 Ordered Peripheral IV Insertion Adult [OM.PC] Stat Oth 03/12/21 07:43 Ordered Medication Orders Sodium Chloride (Sodium Chloride 0.9% 10 Ml Syringe) 10 ml FLUSH ASDIRECTED PRN PRN Reason: Keep Vein Open Last Admin: 03/12/21 07:47 Dose: 10 ml Documented by: BENSON Meds: Medications Generic Name Dose Route Start Last Admin Trade Name Freq PRN Reason Stop Dose Admin Sodium Chloride 10 ml 03/12/21 07:43 03/12/21 07:47 Sodium Chloride 0.9% 10 Ml Syringe FLUSH 10 ml ASDIRECTED PRN Administration Keep Vein Open Discontinued Medications Generic Name Dose Route Start Last Admin Trade Name Freq PRN Reason Stop Dose Admin Lidocaine/Epinephrine 20 ml 03/12/21 07:26 03/12/21 07:47 Lidocaine 1% With Epinephrine 1:100,000 20 Ml Mdv .XX 03/12/21 07:27 20 ml ONETIME ONE Administration Ondansetron HCl 4 mg 03/12/21 07:43 03/12/21 07:47 Ondansetron 4 Mg/2 Ml Sdv IV 03/12/21 07:44 4 mg ONETIME ONE Administration Tranexamic Acid 1,000 mg 03/12/21 07:26 03/12/21 07:48 Tranexamic Acid 1,000 Mg/10 Ml Amp TOP 03/12/21 07:27 1,000 mg ONETIME ONE Administration - Re-Assessments/Exams Free Text/Narrative Re-Assessment/Exam: 03/12/21 Attempted direct pressure to site of tonsillar bed bleeding with TXA soaked cotton pledgets and lidocaine w/EPI, however pt has a pronounced gag reflex and cannot tolerate the procedure and has a major gagging and emesis response. Pt maintains ice packs to the neck. Plan to transfer him to [facility] where he can be evaluated by ENT. Departure - Departure Time of Disposition: 07:56 Disposition: DC/Tfer to Acute Hospital 02 Condition: Fair Clinical Impression: Postoperative hemorrhage of tonsil - Discharge Information *PRESCRIPTION DRUG MONITORING PROGRAM REVIEWED*: Not Applicable *COPY OF PRESCRIPTION DRUG MONITORING REPORT IN PATIENT KATARZYNA: Not Applicable Forms: ED Department Discharge, Interfacility Transfer EMTALA Sepsis Event Note (ED) - Focused Exam Vital Signs: Vital Signs Temp Pulse Resp BP Pulse Ox 03/12/21 07:30 96.5 F L 66 16 135/86 99 - My Orders Last 24 Hours: My Active Orders 03/12/21 07:25 Ice Bag [Ice Therapy] [OM.PC] Routine 03/12/21 07:40 CBC WITH AUTO DIFF [HEME] Stat INR,PT,PROTHROMBIN TIME [COAG] Stat PTT,PARTIAL THROMBOPLSTIN TIME [COAG] Stat 03/12/21 07:43 Peripheral IV Care [RC] . DIRECTED Sodium Chloride 0.9% [Saline Flush] 10 ml FLUSH ASDIRECTED PRN Peripheral IV Insertion Adult [OM.PC] Stat - Assessment/Plan Last 24 Hours: My Active Orders 03/12/21 07:25 Ice Bag [Ice Therapy] [OM.PC] Routine 03/12/21 07:40 CBC WITH AUTO DIFF [HEME] Stat INR,PT,PROTHROMBIN TIME [COAG] Stat PTT,PARTIAL THROMBOPLSTIN TIME [COAG] Stat 03/12/21 07:43 Peripheral IV Care [RC] . DIRECTED Sodium Chloride 0.9% [Saline Flush] 10 ml FLUSH ASDIRECTED PRN Peripheral IV Insertion Adult [OM.PC] Stat
[2021-03-12] MEDS ORDERED: Lidocaine 1% with EPINEPHrine 1:100,000 20 ML MDV ONE (07:26)
[2021-03-12 07:33] VITALS: BP 135/86; PULSE 66
[2021-03-12] MEDS ORDERED: Sodium Chloride 0.9% 10 ML Syringe FLUSH PRN (07:43)
[2021-03-12] MEDS ORDERED: Ondansetron 4 MG/2 ML SDV IV ONE (07:43)
[2021-03-12 08:24] LABS: PTT,PARTIAL THROMBOPLSTIN TIME 25.3 SEC (22.0-34.0)
== END 2021-03-12 08:13 ==
LOC: DL.ED 07:15
DX: J95.830 Postprocedural hemorrhage of a respiratory system organ or structure following a respiratory system procedure (principal); I10 Essential (primary) hypertension; G35 Multiple sclerosis; Z79.899 Other long term (current) drug therapy
CPT/HCPCS: 36415; 85025; 85610; 85730; 96374; 99284; J2405

== ENCOUNTER 2024-12-26 14:09 | Emergency (ER) | payer OTHER ==
[2024-12-26 14:47] LABS: PLATELET COUNT,PLT 356 10^3/uL (150-450); RED BLOOD CELL COUNT 4.05 10^6/uL (4.6-6.2); WHITE BLOOD CELL COUNT,WBC 9.9 10^3/uL (5.0-10.0)
[2024-12-26 14:50] VITALS: BP 146/81; PULSE 97
[2024-12-26 14:51] LABS: BASOPHILS PERCENT AUTO 0.2 % (0.0-1.0); EOSINOPHILS PERCENT AUTO 2.4 % (1.0-3.0); LYMPHOCYTES PERCENT AUTO 4.5 % (20.5-50.1); MONOCYTES PERCENT AUTO 10.3 % (2-8); NEUTROPHILS PERCENT AUTO 82.6 % (42.2-75.2)
[2024-12-26 15:03] LABS: BLOOD UREA NITROGEN,BUN 21.0 mg/dL (7-18); CARBON DIOXIDE,CO2 31.0 mmol/L (21-32); CHLORIDE,CL 101.0 mmol/L (98-107); CREATININE 0.77 mg/dL (0.70-1.30); EST CRCL DRUG DOSING (CG) 102.4 mL/min; GLUCOSE RANDOM 110.0 mg/dL (70-99); POTASSIUM,K 4.6 mmol/L (3.5-5.1); SODIUM,NA 139.0 mmol/L (136-145)
[2024-12-26 15:04] LABS: ESTIMATED GFR 104.0 mL/min (>=60)
[2024-12-26 15:05] LABS: BAND PERCENT MAN 1 %; EOSINOPHILS PERCENT MAN 5 % (1-3); LYMPHOCYTES PERCENT MAN 3 % (20-50); MONOCYTES PERCENT MAN 12 % (2-8); SEG NEUTROPHILS PERCENT MAN 79 % (42-75)
[2024-12-26 15:09] LABS: INR 0.9 (0.9-1.2)
== END 2024-12-26 14:53 | disposition home or self-care (01) ==
LOC: DL.ED 14:09
DX: I82.431 Acute embolism and thrombosis of right popliteal vein (principal); I82.441 Acute embolism and thrombosis of right tibial vein; I10 Essential (primary) hypertension; M19.90 Unspecified osteoarthritis, unspecified site; Z79.899 Other long term (current) drug therapy
CPT/HCPCS: 36415; 80048; 85025; 85610; 99283; 99284; A9270-GY